=== PATIENT | female | born 1970 ===

== ENCOUNTER 2017-06-15 11:30 | Emergency (ER) | payer OTHER ==
[2017-06-15 11:44] VITALS: BP 105/69; PULSE 90; RESP 16; TEMP 98.4; O2SAT 99
[2017-06-15] MEDS ORDERED: Albuterol 0.083% Inhal Sol (2.5 mg/3 mL) UD IH STA (12:10)
[2017-06-15] MEDS ORDERED: Albuterol 0.083% Inhal Sol (2.5 mg/3 mL) UD ONE (12:16)
--- NOTE | 2017-06-15 12:51 | RAD ---
HISTORY: PERSISTENT COUGH COMPARISON: No prior. TECHNIQUE: Chest PA and lateral FINDINGS: LUNGS: No active pulmonary disease. PLEURA: No significant pleural effusion identified. No pneumothorax apparent. CARDIOVASCULAR: Normal. OSSEOUS STRUCTURES: No significant abnormalities. VISUALIZED UPPER ABDOMEN: Normal. OTHER FINDINGS: None. IMPRESSION: No radiographic evidence of pneumonia.
--- NOTE | 2017-06-15 13:15 | C.PDOC ---
History Of Present Illness 46 yr old female presents to the ER with complaints of nonproductive cough for the past 2 weeks with mild SOB. Patient denies fever, chest pain, sore throat, runny nose or headache. Time Seen by Provider: 06/15/17 11:50 Chief Complaint (Nursing): Cough, Cold, Congestion History Per: Patient History/Exam Limitations: no limitations Onset/Duration Of Symptoms: Days (2 weeks) Past Medical History Reviewed: Historical Data, Nursing Documentation, Vital Signs Vital Signs: Last Vital Signs Temp 98.4 F 06/15/17 11:41 Pulse 90 06/15/17 11:41 Resp 16 06/15/17 11:41 BP 105/69 06/15/17 11:41 Pulse Ox 99 06/15/17 14:32 - Medical History PMH: Gastritis, Hypercholesterolemia Family History: States: No Known Family Hx - Social History Hx Tobacco Use: No Hx Alcohol Use: No Hx Substance Use: No - Immunization History Hx Tetanus Toxoid Vaccination: No Hx Influenza Vaccination: No Hx Pneumococcal Vaccination: No Review Of Systems Except As Marked, All Systems Reviewed And Found Negative. Constitutional: Negative for: Fever ENT: Negative for: Nose Discharge, Throat Pain Cardiovascular: Negative for: Chest Pain Respiratory: Positive for: Cough (Nonproductive), Shortness of Breath (Mild) Neurological: Negative for: Headache Physical Exam - Physical Exam Appears: Non-toxic, No Acute Distress Skin: Warm, Dry, No Rash Head: Atraumatic, Normacephalic Ear(s): Bilateral: Normal Nose: Normal Oral Mucosa: Moist Lips: Normal Appearing Throat: Normal, No Erythema, No Exudate, No Drooling, Other (Speaking in full sentences) Neck: Normal, Normal ROM, Supple Respiratory: No Rales, No Rhonchi, Wheezing (Mild expirtory wheezing) Gastrointestinal/Abdominal: Normal Exam, Soft, No Tenderness, No Guarding, No Rebound Extremity: Normal ROM, No Swelling Neurological/Psych: Oriented x3, Normal Speech, Normal Motor ED Course And Treatment O2 Sat by Pulse Oximetry: 99 (RA) Pulse Ox Interpretation: Normal - Other Rad CXR X-Ray: Viewed By Me, Read By Radiologist Interpretation: HISTORY: PERSISTENT COUGH. COMPARISON: No prior. TECHNIQUE: Chest PA and lateral. FINDINGS: LUNGS: No active pulmonary disease. PLEURA : No significant pleural effusion identified. No pneumothorax apparent. CARDIOVASCULAR: Normal. OSSEOUS STRUCTURES: No significant abnormalities. VISUALIZED UPPER ABDOMEN: Normal. OTHER FINDINGS: None. IMPRESSION: No radiographic evidence of pneumonia. Progress Note: PLAN: CXR & Albuterol IH. Disposition Counseled Patient/Family Regarding: Studies Performed, Diagnosis, Need For Followup, Rx Given - Disposition Referrals: Niles Smith MD [Non-Staff] - Disposition: HOME/ ROUTINE Disposition Time: 13:15 Condition: STABLE Additional Instructions: SEGUIMIENTO CON LEES MDICO EN 1-2 DINH USE MEDICAMENTOS SEGN SEA NECESARIO VOLVER A ER SI LOS SNTOMAS EMPEORAN Prescriptions: Albuterol HFA [Ventolin HFA 90 mcg/actuation (8 g)] 0.09 mg IH Q4 PRN #1 puff PRN Reason: Wheezing Benzonatate [Tessalon Perles] 100 mg PO BID PRN #15 sgl PRN Reason: Cough Instructions: Upper Respiratory Infection (ED) Forms: [employer] (Nepalese) Print Language: MALTESE - POA Present On Arrival: None - Clinical Impression Clinical Impression: Bronchospasm, Viral disease, Upper respiratory infection - Scribe Statement The provider has reviewed the documentation as recorded by the [facility] Cho Provider Attestation: All medical record entries made by the Scribe were at my direction and personally dictated by me. I have reviewed the chart and agree that the record accurately reflects my personal performance of the history, physical exam, medical decision making, and the department course for this patient. I have also personally directed, reviewed, and agree with the discharge instructions and disposition.
== END 2017-06-15 13:22 | disposition home or self-care (01) ==
LOC: C.ER 11:30
DX: J98.01 Acute bronchospasm (principal); J06.9 Acute upper respiratory infection, unspecified; B34.9 Viral infection, unspecified